=== PATIENT | female | born 1950 | race Asian ===

== ENCOUNTER 2017-01-07 06:25 | Day surgery (SDC) | payer MEDICARE, MEDICAID ==
[~2017-01-07] VITALS: Ht 160 cm; Wt 59.5 kg
[2017-01-07] MEDS ORDERED: LIDOCAINE HCL 4% 50 ML SOLUTION TP ONE (06:26)
[2017-01-07] MEDS ORDERED: LIDOCAINE HCL 2% 30 ML JELLY TP ONE (06:26)
[2017-01-07] MEDS ORDERED: ALBUTEROL SULFATE 2.5 MG/0.5 ML NEB SOLUTION NEB ONE (06:26)
[2017-01-07] MEDS ORDERED: SODIUM CHLORIDE 0.9% 1,000 ML IV ONE (07:00)
[2017-01-07] MEDS ORDERED: IPRA4AER IH (07:10)
[2017-01-07] MEDS ORDERED: ATEN50TA PO (07:10)
[2017-01-07] MEDS ORDERED: PRED10 PO (07:10)
[2017-01-07] MEDS ORDERED: TIOT4MIS2 PUFF (07:10)
[2017-01-07] MEDS ORDERED: ALBU8.5H8 IH (07:10)
[2017-01-07] MEDS ORDERED: METO50 PO (07:10)
[2017-01-07] MEDS ORDERED: RANI150T7 PO (07:10)
[2017-01-07] MEDS ORDERED: SUCR1TAB PO (07:10)
[2017-01-07] MEDS ORDERED: BENA20 PO (07:10)
[2017-01-07] MEDS ORDERED: MIDAZOLAM HCL 2 MG/2 ML VIAL ONE (07:29)
[2017-01-07] MEDS ORDERED: FentaNYL CITRATE-PF 100 MCG/2 ML VIAL ONE (07:29)
[2017-01-07] MEDS ORDERED: MethylPREDNISolone SOD SUCC 125 MG/2 ML VIAL IVP ONE (09:15)
[2017-01-07] MEDS ORDERED: MethylPREDNISolone SOD SUCC 125 MG/2 ML VIAL ONE (09:23)
[2017-01-07] MEDS ORDERED: OXYGEN THERAPY IH SCH (20:00)
== END 2017-01-07 10:35 | disposition home or self-care (01) ==
LOC: SURGERY 06:25
PROVIDERS: ATTEND Internal Medicine Critical Care Medicine
DX: J38.4 Edema of larynx (principal); B37.0 Candidal stomatitis
CPT/HCPCS: 31623; 31624; 71010; 87015 ×2; 87070; 87101; 87147; 87205; 87220; 88108; 88312; 93005; 94640; J2250; J2930; J3010; J7030